=== PATIENT | female | born 2005 | race Hispanic/Latino ===

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

== ENCOUNTER 2025-10-11 15:39 | Emergency (ER) | payer SELFPAY ==
[~2025-10-11] VITALS: Ht 154.9 cm; Wt 54.4 kg
--- NOTE | 2025-10-11 16:02 | ERN ---
ED Note History of Present Illness Stated Complaint: SORE THROAT Chief Complaint: Sore Throat Time Seen by MD: 16:00 Time Seen by Midlevel: 16:20 Dictation: Ms Almeida is a 20-year-old female with no reported chronic health issues who presented to the emergency department this afternoon for evaluation of sore throat. She reports one week of throat pain/pain with swallowing. She reports possible fever, chills, and fatigue. She Denies fever, chills, shortness of breath, cough, chest pain, palpitations, edema, abdominal pain, nausea, vomiting, hematemesis, constipation, diarrhea, melena, hematochezia, dysuria, headache, dizziness, or focal weakness/paresthesia. She has been taking [id number] ibuprofen as needed for discomfort. Allergies: Coded Allergies: No Known Drug Allergies (Unverified Allergy, Unknown, 10/11/25) Home Meds Active Scripts Penicillin V Potassium (Penicillin V Potassium) 500 Mg Tablet, 1 TAB PO BID for 10 Days, #20 TAB 0 Refills Prov:MAO DU ACCOUNT PROCESSOR 10/11/25 Past Medical History Past Medical History: No Pertinent History Surgical History: None PSYCH History: no pertinent psych hx Social History: Negative, Lives with family RN Note Reviewed/Agreed w/PFSH: Yes Review of System Dictation REVIEW OF SYSTEMS: CONSTITUTIONAL: Patient denies sweats or weight changes. Reports fatigue and subjective fever. EYES: Patient denies any visual symptoms. EARS, NOSE, AND THROAT: No difficulties with hearing. No symptoms of rhinitis. Reports sore throat/pain with swallowing. CARDIOVASCULAR: Patient denies chest pains, palpitations, orthopnea and paroxysmal nocturnal dyspnea. RESPIRATORY: No dyspnea on exertion, no wheezing or cough. GI: No nausea, vomiting, diarrhea, constipation, abdominal pain, hematochezia or melena. : No urinary hesitancy or dribbling. No nocturia or urinary frequency. No abnormal urethral discharge. MUSCULOSKELETAL: No myalgias or arthralgias. NEUROLOGIC: No chronic headaches, no seizures. Patient denies numbness, tingling or weakness. PSYCHIATRIC: Patient denies problems with mood disturbance. No problems with anxiety. ENDOCRINE: No excessive urination or excessive thirst. DERMATOLOGIC: Patient denies any rashes or skin changes. Initial Vital Sign VS Vital Signs Date Time Temp Pulse Resp B/P (MAP) Pulse Ox O2 Delivery O2 Flow Rate FiO2 10/11/25 15:40 97.9 77 20 129/78 97 Room Air 10/11/25 17:26 0 21 Physical Exam Dictation Vital signs: Reviewed. Fever Constitutional: No acute distress. Non-toxic appearing. Accompanied by family Head/Face: Normocephalic, atraumatic. Eyes: Periorbital areas with no swelling, redness, or edema. Lids and lashes are normal. Conjunctival injection is absent. Sclera anicteric. Pupils equal, round, reactive to light. ENT: Pinnas intact and no signs of trauma or erythema. Ear canals clear and no discharge. TMs no erythema. No nasal discharge or bleeding noted. Bilateral tonsillar enlargement with erythema and right-sided tonsillar exudate as well as cervical lymphadenopathy. Voice is clear. No masses,or evidence of obstruction. Uvula midline. Mucous membranes moist. Neck: Trachea midline, no masses palpated, + cervical lymphadenopathy No swelling. Supple, full range of motion. Chest/Axilla: No tenderness, no crepitus, no paradoxical movement, no retractions. Cardiovascular: Regular rate, regular rhythm, no murmur, no gallops. Symmetric pulses. No peripheral edema. Respiratory: Respirations even and unlabored. Lung sounds clear; no wheezes, rales or rhonchi. Room air SpO2 99% Gastrointestinal: Inspection is normal. No distention is appreciated. Bowel sounds are normal. No mass or organomegaly . There is no tenderness. No rebound. No rigidity. No voluntary or involuntary guarding. No Mancini's sign. Neurological: Normal speech, gross motor function intact, gross sensory function intact. No focal weakness/Paresthesia. Musculoskeletal/Extremities: All extremities have full range of motion, no pain or tenderness on palpation. Symmetric pulses. Integumentary: Intact. Skin is normal color, warm and dry. Cap refill less than 3 seconds. Results (Laboratory/Radiology) Laboratory/Radiology Laboratory Tests Test 10/11/25 16:18 Influenza Type A Antigen Negative For Type A Influenza Type B Antigen Negative For Type B SARS-CoV-2, RNA, NAAT NEGATIVE SARS CoV-2 Group A Streptococcus Rapid negative (NEGATIVE) ED Course ED Course Orders Procedure Category Date Status Time Influenza Type A & B, LAB 10/11/25 Complete Rapid 16:01 Covid Rna Naat LAB 10/11/25 Complete 16:01 Rapid (Group A Strep) LAB 10/11/25 Complete 16:01 Vital Signs Date Time Temp Pulse Resp B/P (MAP) Pulse Ox O2 Delivery O2 Flow Rate FiO2 10/11/25 17:26 98.1 65 16 124/75 100 Room Air* 0 21 10/11/25 15:40 97.9 77 20 129/78 97 Room Air Patient presented with sore throat and pain with swelling for approximately one week. Physical examination revealed bilateral tonsillar enlargement with erythema and right-sided tonsillar exudate as well as cervical lymphadenopathy voice is clear. Patient was able to tolerate oral secretions without difficulty. No signs of airway compromise noted. Rapid strep testing resulted negative; however given class clinical findings of exudative tonsillitis and lymphadenopathy and absence of viral symptoms, empiric antibiotic therapy was initiated. COVID-19 and influenza testing were negative. Patient remained hemodynamically stable throughout ED course with oxygen saturation 97% on room air. She was deemed stable for discharge with antibiotics, supportive care, and return precautions. Medical Decision Making MDM MDM: Differential diagnosis: Bacterial pharyngitis, viral pharyngitis, peritonsillar cellulitis, tonsillitis, abscess Rationale: Tests considered and ordered secondary to shared decision making include: Previous outside records reviewed: Old ER visits. Risk of complication and/or morbidity or mortality of patient management: None Medications-Per medication reconciliation Need for hospitalization: Patient does not meet criteria for hospitalization. Need for emergency major/minor surgery: No There are no social concerns with this patient. Prescription drug management: Pen VK Prescriptions will include symptomatic care Patient's prior external medical records from other ER visits were reviewed by me as indicated. Prior testing and results from previous visits were reviewed. Prior tests were taken into account with medical decision making and resource utilization, independent historian/historians were used to obtain complete medical history. I independently interpreted the test that were performed, results were reviewed by me and considered findings on radiology if ordered. Medical management and examination interpretation discussions were had by me with other qualified healthcare professionals as indicated for the patient's care. DX & DISP Disposition: Discharge Departure Impression: Primary Impression: Tonsillitis Condition: Stable Scripts Penicillin V Potassium (Penicillin V Potassium) 500 Mg Tablet 1 TAB PO BID for 10 Days, #20 TAB 0 Refills Prov: MAO DU 10/11/25 Additional Instructions: Take the penicillin twice daily times 10 days; take until gone regardless if you are feeling better. May use [id number] Tylenol or ibuprofen as needed for pain or fever. Warm saltwater gargles may help with throat discomfort. Drink plenty of fluids. Soft foods as tolerated. Avoid sharing drinks or utensils. Replace toothbrush after 24-48 hours of antibiotics. Follow up with your primary care physician if symptoms do not improve within 48-72 hours. Return to the emergency department immediately if you develop: Difficulty breathing/swallowing, drooling/inability to handle secretions, worsening throat pain/swelling, fever not improving with medications, muffled voice, or neck stiffness/worsening swelling. Referrals: SELF,REFERRAL (PCP) Time of Disposition: 17:04 I performed a substantive portion of the visit. I have reviewed and personally made and approve the management plan that is documented in the notes by myself with EZEQUIEL/resident. I acknowledged full responsibility for the patient's management plan. MAO DU Oct 11, 2025 16:02 NANCY SON DO Oct 11, 2025 18:11
[2025-10-11 16:41] LABS: RAPID GROUP A STREP negative (NEGATIVE)
[2025-10-11 16:45] LABS: SARS-CoV-2, RNA, NAAT NEGATIVE SARS CoV-2 (NEGATIVE)
[2025-10-11 16:59] LABS: INFLUENZA TYPE A Negative For Type A (NEGATIVE); INFLUENZA TYPE B Negative For Type B (NEGATIVE)
[2025-10-11] MEDS ORDERED: PENI500T2 PO (17:03)
[2025-10-11 17:26] VITALS: BP 124/75; PULSE 65; RESP 16; TEMP 98.1; O2SAT 100
== END 2025-10-11 17:29 | disposition home or self-care (01) ==
LOC: EDH 15:39
DX: J03.90 Acute tonsillitis, unspecified (principal); Z20.822 Contact with and (suspected) exposure to COVID-19
CPT/HCPCS: 87635; 87804; 87880; 99283